=== PATIENT | female | born 1945 | race Caucasian/White ===

== ENCOUNTER → 2021-07-19 | Emergency (ER) | payer BC ==
[~2021-07-19] VITALS: Ht 162.6 cm; Wt 91.6 kg
[~2021-07-19] MED LIST: HYDR-3972 PO; HYDROCODONE/APAP 5/325MG TABLET ONE; HYDROCODONE/APAP 5/325MG TABLET PO ONE
--- NOTE | 2021-07-19 20:37 | NUR ---
GIO 87 FROM HOME FOR C/O L WRIST AND L KNEE PAIN S/P GLF. DENIED HITTING HEAD -KO. PT STATES SHE SLIPPED ON HER BEDROOM RUG. PMS EQUAL BILATERALLY IN ALL EXTEMITIES. ALERT ORIENTED X4 NO NEURO DEFECITS NOTED. PLACED ON MONITOR AND ALL V/S STABLE. MD WAS AT BEDSIDE FOR EVAL.
--- NOTE | 2021-07-19 20:40 | NUR ---
XRAY AT BEDSIDE
--- NOTE | 2021-07-19 21:38 | NUR ---
Patient discharged to home in stable condition. Written and verbal after care instructions given. Patient verbalizes understanding of instruction.
[2021-07-19 21:40] VITALS: BP 151/88
== END | disposition home or self-care (01) ==
LOC: ER 20:29
DX: S52.532A Colles' fracture of left radius, initial encounter for closed fracture (principal); S80.02XA Contusion of left knee, initial encounter; I10 Essential (primary) hypertension; I48.91 Unspecified atrial fibrillation; K21.9 Gastro-esophageal reflux disease without esophagitis; E03.9 Hypothyroidism, unspecified; Z88.0 Allergy status to penicillin; Z88.6 Allergy status to analgesic agent; W18.39XA Other fall on same level, initial encounter; Y93.89 Activity, other specified; Y92.89 Other specified places as the place of occurrence of the external cause; Y99.8 Other external cause status
CPT/HCPCS: 73090-TC; 73130-TC; 73564-TC